=== PATIENT | female | born 1975 | race Caucasian/White ===

== ENCOUNTER → 2022-02-12 | Outpatient (CLI) | payer OTHER | LOC: M WHC 14:12 | PROVIDERS: ATTEND Family Medicine | DX: Z12.31 Encounter for screening mammogram for malignant neoplasm of breast (principal) ==

== ENCOUNTER → 2022-04-05 | Outpatient (CLI) | payer OTHER | LOC: M RAD 12:48 | PROVIDERS: ATTEND Nurse Practitioner Adult Health | DX: R91.8 Other nonspecific abnormal finding of lung field (principal) ==

== ENCOUNTER 2022-04-14 17:29 | Emergency (ER) | payer OTHER ==
[~2022-04-14] VITALS: Ht 157.5 cm; Wt 74.4 kg
[2022-04-14 17:30] VITALS: BP 137/98
[2022-04-14] MEDS ORDERED: LIPI10TA PO (17:38)
== END 2022-04-14 18:30 | disposition home or self-care (01) ==
LOC: M ED 17:29
DX: S61.011A Laceration without foreign body of right thumb without damage to nail, initial encounter (principal); W26.8XXA Contact with other sharp object(s), not elsewhere classified, initial encounter; Y92.009 Unspecified place in unspecified non-institutional (private) residence as the place of occurrence of the external cause; E78.5 Hyperlipidemia, unspecified; Z88.5 Allergy status to narcotic agent; Z88.0 Allergy status to penicillin

== ENCOUNTER 2022-06-14 13:21 | Emergency (ER) | payer OTHER ==
[~2022-06-14] VITALS: Ht 157.5 cm; Wt 73.1 kg
[~2022-06-14 13:21] MED LIST: LIPI10TA PO
[2022-06-14 13:23] VITALS: BP 140/90
[2022-06-14] MEDS ORDERED: CLAR10TA7 PO (13:32)
[2022-06-14] MEDS ORDERED: SING10TA32 PO (13:32)
[2022-06-14] MEDS ORDERED: LIDOCAINE 5% (LIDODERM) PATCH TD ONE (13:35)
[2022-06-14] MEDS: IBUPROFEN 600MG TAB PO ONE ×2 (13:44→13:48)
[2022-06-14] MEDS ORDERED: IBUPROFEN 100MG 5ML SUSP UDC DYE FREE PO ONE (13:50)
[2022-06-14] MEDS ORDERED: KETOROLAC 60MG 2ML VIAL IM ONE (16:05)
[2022-06-14] MEDS ORDERED: PERCOCET 5MG/325MG TAB PO ONE (16:05)
[2022-06-14] MEDS ORDERED: OXYC1TAB23 PO ×2 (18:26→19:25)
[2022-06-14] MEDS ORDERED: ONDA4TAB6 PO ×2 (18:28→19:27)
[2022-06-14 20:51] LABS: AMORPHOUS SEDIMENT, URINE LARGE AMOUNT (NEGATIVE); BACTERIA, URINE NONE SEEN; HYALINE CAST, URINE NONE SEEN /lpf (0-1); MUCUS, URINE SMALL AMOUNT (NEGATIVE); RBC, URINE NONE SEEN /hpf (0-3); SQUAMOUS EPITHELIAL CELL URINE NONE SEEN /hpf (SMALL AMT)
[2022-06-15] MEDS ORDERED: **NOTE PATIENT COMMENT** MISC XX ONE (02:00)
== END 2022-06-14 18:44 | disposition home or self-care (01) ==
LOC: M ED 13:21
DX: S32.010A Wedge compression fracture of first lumbar vertebra, initial encounter for closed fracture (principal); Y93.19 Activity, other involving water and watercraft; M48.05 Spinal stenosis, thoracolumbar region; J45.909 Unspecified asthma, uncomplicated; E78.5 Hyperlipidemia, unspecified; Z88.0 Allergy status to penicillin; Z88.5 Allergy status to narcotic agent

== ENCOUNTER → 2022-09-03 | Outpatient (CLI) | payer OTHER ==
[~2022-09-03] MED LIST changes: +CLAR10TA7 PO; +ONDA4TAB6 PO; +OXYC1TAB23 PO; +SING10TA32 PO
== END ==
LOC: M WHC 14:57
PROVIDERS: ATTEND Orthopaedic Surgery
DX: S32.010D Wedge compression fracture of first lumbar vertebra, subsequent encounter for fracture with routine healing (principal); W18.30XD Fall on same level, unspecified, subsequent encounter

== ENCOUNTER → 2023-08-12 | Outpatient (CLI) | payer OTHER ==
[~2023-08-12] MED LIST changes: +MONT-5 PO; -SING10TA32 PO
== END ==
LOC: M WHC 14:05
PROVIDERS: ATTEND Family Medicine
DX: Z12.31 Encounter for screening mammogram for malignant neoplasm of breast (principal)